=== PATIENT | male | born 1975 | race Two or more races ===

== ENCOUNTER 2016-03-04 14:05 | Emergency (ER) | payer SELFPAY ==
[~2016-03-04] VITALS: Ht 167.6 cm; Wt 75.0 kg
[2016-03-04 14:08] VITALS: BP 131/71; PULSE 76; RESP 15; TEMP 97.9; O2SAT 99
[2016-03-04] MEDS ORDERED: METHOCARBAMOL 500 MG TAB PO ONE (15:15)
[2016-03-04] MEDS ORDERED: IBUPROFEN 800 MG TAB PO ONE (15:15)
--- NOTE | 2016-03-04 15:15 | PD ---
HPI Chief Complaint: Injury Time Seen by Provider: 15:15 Travel History International Travel<30 days: No Contact w/Intl Traveler<30days: No Traveled to known affect area: No History of Present Illness HPI 40-year-old male, mostly Monegasque-speaking patient, presents to the emergency department accompanied by a friend that is translating for him and the patient provided verbal consent to use his friend as an frame stripper. The patient is complaining of left knee pain 2 days after stepping down into a hole and hyperextending his leg. Denies paresthesias, loss of sensation, decreased range of motion, decreased strength to the affected extremity. Pain is aggravated with bending the knee, and walking. He is also complaining of upper back pain. Denies low back pain. He denies falling when he stepped into a hole. Denies fever, chills, nausea, vomiting. Has wrapped his knee in an James bandage for support. Has not taken any medications or tried any other treatments to alleviate his symptoms. Denies allergies. Denies significant past medical history. No other modifying factors or associated signs and symptoms. PFSH Past Medical History Medical History: Denies Significant Hx Social History Tobacco Use: No Allergies-Medications (Allergen,Severity, Reaction): Coded Allergies: No Known Allergies (Unverified , 03/04/16) Reported Meds & Prescriptions Reported Meds & Active Scripts Active Robaxin (Methocarbamol) 500 Mg Tab 500 Mg PO QID PRN Ibuprofen 800 Mg Tab 800 Mg PO Q6HR PRN Review of Systems Except as stated in HPI: all other systems reviewed are Neg Physical Exam Narrative GENERAL: Well-nourished, well-developed male patient, in no acute distress SKIN: Warm and dry. HEAD: Atraumatic. Normocephalic. EYES: Pupils equal and round. No scleral icterus. No injection or drainage. ENT: Mucosa pink and moist. Airway patent. NECK: Trachea midline. CARDIOVASCULAR: Regular rate. RESPIRATORY: No accessory muscle use. GASTROINTESTINAL: Flat. MUSCULOSKELETAL: Left knee is nonedematous and nonerythematous; with full range of motion with flexion to 90; no obvious deformity; tenderness on palpation to the lateral and medial aspects; knee joint stable with negative drawer test. Left lower extremity supple and non-tense with 2+30 pulses and sensory intact without erythema or edema. No cyanosis. No clubbing. No obvious deformities. BACK: No midline point tenderness on palpation of the lumbar, thoracic, cervical spine. Reproducible tenderness to bilateral paraspinal thoracic and trapezius muscle areas over the scapulas. NEUROLOGICAL: Awake and alert. Oriented 3. No obvious cranial nerve deficits. Motor grossly within normal limits. Normal speech. PSYCHIATRIC: Appropriate mood and affect; insight and judgment normal. Data Data Last Documented VS Vital Signs Date Time Temp Pulse Resp B/P Pulse Ox O2 Delivery O2 Flow Rate FiO2 03/04/16 14:08 97.9 76 15 131/71 99 Orders Knee, Complete (4vws) (03/04/16 15:15) Methocarbamol (Robaxin) (03/04/16 15:15) Ibuprofen (Motrin) (03/04/16 15:15) MDM Medical Decision Making Medical Screen Exam Complete: Yes Emergency Medical Condition: Yes Medical Record Reviewed: Yes Differential Diagnosis Ligman tear, meniscal tear, knee strain, fracture, dislocation Narrative Course 40-year-old male with left knee injury. Patient is Monegasque-speaking and the patient gave consent to use his friend as an frame stripper. Left knee is not edematous and erythematous with full range of motion with flexion to 90. Knee joint stable. Tenderness to the lateral and medial aspects. Ibuprofen and Robaxin administered in the ER. Left knee x-ray ordered. 1600: Left knee x-ray concludes Unremarkable examination of the left knee. James bandage and crutches provided for support. Mandatory referral ordered to rule out ligament/meniscal tear as patient does not have insurance. Instructed patient to follow up with orthopedic. Ibuprofen and Robaxin prescribed for home. Patient is medically cleared and stable for discharge. Discussed reasons to return to the emergency department. Instructed patient to follow up with primary care provider. Patient agrees with treatment plan. The patients vital signs are stable and the patient is stable for outpatient follow-up and treatment. Patient discharged home, stable and in no acute distress. Diagnosis Primary Impression: Left knee sprain Qualified Code: S83.92XA - Sprain of left knee, unspecified ligament, initial encounter Additional Impression: Spasm of back muscles Referrals: Primary Care Physician Patient Instructions: General Instructions, Knee Sprain (ED) Departure Forms: Tests/Procedures, Work Release Enter return to work date: Mar 07, 2016 Additional Instructions: Tylenol or ibuprofen as needed and as directed to reduce pain and inflammation Rest, ice, compress, and elevate extremity to decrease pain and inflammation Knee Brace for support Crutches for support Avoid aggravating activity; increase activity as tolerated Follow-up with primary care provider Return to the emergency department immediately with worsening symptoms Med/Other Pt SpecificInfo: Prescription(s) given Scripts Methocarbamol (Robaxin)500 Mg Sea775 Mg PO QID PRN (MUSCLE SPASM) #30 TAB Ref 0 Prov:Dominga López 03/04/16 Ibuprofen 800 Mg Eia032 Mg PO Q6HR PRN (PAIN) #30 TAB Ref 0 Prov:Dominga López 03/04/16 Disposition: 01 DISCHARGE HOME Condition: Stable Dominga López Mar 04, 2016 15:15
[2016-03-04] MEDS ORDERED: ROBA500T PO (15:26)
[2016-03-04] MEDS ORDERED: IBUP800T23 PO (15:26)
--- NOTE | 2016-03-04 15:53 | RADRPT ---
EXAM DATE/TIME: 03/04/2016 15:32 [facility] COMPARISON: No previous studies available for comparison. INDICATIONS : Patient fell 2 days ago and complains of left lateral knee pain. MEDICAL HISTORY : None. SURGICAL HISTORY : None. ENCOUNTER: Initial ACUITY: 2 days PAIN SCORE: 8/10 LOCATION: Left Knee FINDINGS: Four view examination of the left knee demonstrates no evidence of fracture or dislocation. Bony min eralization is normal. The articular surfaces are intact. The suprapatellar soft tissues have a nor mal configuration. CONCLUSION: Unremarkable examination of the left knee. Adryan Freeman MD on March 04, 2016 at 15:51 Board Certified Radiologist. This report was verified electronically.
== END 2016-03-04 17:20 | disposition home or self-care (01) ==
LOC: NEPB 14:05
DX: S83.92XA Sprain of unspecified site of left knee, initial encounter (principal); M62.830 Muscle spasm of back; W17.2XXA Fall into hole, initial encounter
CPT/HCPCS: 73564; 99283; E0113